=== PATIENT | female | born 1980 | race Caucasian/White ===

== ENCOUNTER 2021-05-13 15:25 | Emergency (ER) | payer OTHER ==
[~2021-05-13] VITALS: Ht 165.1 cm; Wt 111.1 kg
[2021-05-13] MEDS ORDERED: FORTAMET500 MG (15:47)
== END 2021-05-13 22:28 ==
LOC: ER 15:25
DX: G43.909 Migraine, unspecified, not intractable, without status migrainosus (principal)

== ENCOUNTER 2021-09-19 16:18 | Emergency (ER) | payer OTHER ==
[~2021-09-19] VITALS: Ht 165.1 cm; Wt 113.4 kg
[~2021-09-19 16:18] MED LIST: FORTAMET500 MG
[2021-09-19] MEDS ORDERED: ATORVASTATIN CA20 MG (16:46)
[2021-09-19] MEDS ORDERED: GABAPENTIN300 M2 (16:47)
[2021-09-19] MEDS ORDERED: FERROUS SULFAT325 MG (16:47)
[2021-09-19] MEDS ORDERED: ESCITALOPRAM OX10 MG (16:47)
[2021-09-19] MEDS ORDERED: DIAZEPAM5 MG (16:48)
== END 2021-09-19 18:01 | disposition home or self-care (01) ==
LOC: ER 16:18
DX: M13.80 Other specified arthritis, unspecified site (principal); M25.50 Pain in unspecified joint; E11.9 Type 2 diabetes mellitus without complications

== ENCOUNTER 2021-10-30 15:37 | Emergency (ER) | payer OTHER ==
[~2021-10-30] VITALS: Ht 165.1 cm; Wt 113.4 kg
[~2021-10-30 15:37] MED LIST changes: +ATORVASTATIN CA20 MG; +DIAZEPAM5 MG; +ESCITALOPRAM OX10 MG; +FERROUS SULFAT325 MG; +GABAPENTIN300 M2
== END 2021-10-30 22:16 | disposition home or self-care (01) ==
LOC: ER 15:37
DX: K57.92 Diverticulitis of intestine, part unspecified, without perforation or abscess without bleeding (principal); N20.1 Calculus of ureter; R10.32 Left lower quadrant pain; E11.9 Type 2 diabetes mellitus without complications

== ENCOUNTER 2022-02-06 12:12 | Emergency (ER) | payer OTHER ==
[~2022-02-06] VITALS: Ht 165.1 cm; Wt 111.1 kg
[2022-02-06] MEDS ORDERED: NORFLEX100MG PO (15:42)
[2022-02-06] MEDS ORDERED: MEDROLPACK PO (15:42)
[2022-02-06] MEDS ORDERED: KETO10TA2 PO (15:42)
== END 2022-02-06 16:05 | disposition home or self-care (01) ==
LOC: ER 12:12
DX: M54.59 Other low back pain (principal); E11.9 Type 2 diabetes mellitus without complications; Z79.84 Long term (current) use of oral hypoglycemic drugs; Z88.2 Allergy status to sulfonamides

== ENCOUNTER 2022-05-19 19:16 | Emergency (ER) | payer OTHER ==
[~2022-05-19] VITALS: Ht 165.1 cm; Wt 117.0 kg
[~2022-05-19 19:16] MED LIST changes: +KETO10TA2 PO; +MEDROLPACK PO; +NORFLEX100MG PO
[2022-05-19] MEDS ORDERED: FOLIC ACID1 MG PO (19:22)
[2022-05-19] MEDS ORDERED: CLEOCIN HCL300 MG PO (20:27)
[2022-05-19] MEDS ORDERED: MUPIROCIN1 G1 TOP (20:27)
[2022-05-19] MEDS ORDERED: DICLOFENAC SODI75 MG PO (20:27)
== END 2022-05-19 20:36 | disposition home or self-care (01) ==
LOC: ER 19:16
DX: L02.415 Cutaneous abscess of right lower limb (principal); E11.9 Type 2 diabetes mellitus without complications; Z79.84 Long term (current) use of oral hypoglycemic drugs; I10 Essential (primary) hypertension; Z88.2 Allergy status to sulfonamides

== ENCOUNTER 2022-12-18 02:25 | Emergency (ER) | payer OTHER ==
[~2022-12-18] VITALS: Ht 165.1 cm; Wt 114.3 kg
[~2022-12-18 02:25] MED LIST changes: +CLEOCIN HCL300 MG PO; +DICLOFENAC SODI75 MG PO; +FOLIC ACID1 MG PO; +MUPIROCIN1 G1 TOP
[2022-12-18] MEDS ORDERED: INTESTINEX680 M1 PO ×2 (02:38→10:33)
[2022-12-18] MEDS ORDERED: OZEMPIC0.25 MG/0. SQ (02:38)
[2022-12-18] MEDS ORDERED: LEVSIN/SL0.125 MG SL (10:33)
[2022-12-18] MEDS ORDERED: PEPCID AC20 MG PO (10:33)
[2022-12-18] MEDS ORDERED: METRONIDAZOLE500 MG PO (10:33)
== END 2022-12-18 10:47 | disposition home or self-care (01) ==
LOC: ER 02:25
DX: K52.9 Noninfective gastroenteritis and colitis, unspecified (principal)

== ENCOUNTER 2023-02-26 11:18 | Emergency (ER) | payer OTHER ==
[~2023-02-26] VITALS: Ht 165.1 cm; Wt 114.3 kg
[~2023-02-26 11:18] MED LIST changes: +INTESTINEX680 M1 PO; +LEVSIN/SL0.125 MG SL; +METRONIDAZOLE500 MG PO; +OZEMPIC0.25 MG/0. SQ; +PEPCID AC20 MG PO
== END 2023-02-26 15:21 | disposition home or self-care (01) ==
LOC: ER 11:18
DX: M25.512 Pain in left shoulder (principal); M25.561 Pain in right knee; W18.39XA Other fall on same level, initial encounter; Y93.89 Activity, other specified; Y92.017 Garden or yard in single-family (private) house as the place of occurrence of the external cause; Z88.2 Allergy status to sulfonamides

== ENCOUNTER 2023-12-27 09:17 | Emergency (ER) | payer OTHER ==
[~2023-12-27] VITALS: Ht 165.1 cm; Wt 108.0 kg
[2023-12-27] MEDS ORDERED: CIMBALTA (09:49)
[2023-12-27] MEDS ORDERED: 0.9 % SODIUM CHLORIDE 1,000 ML IV STA (11:33)
[2023-12-27] MEDS ORDERED: MEPERIDINE HCL/PF 50 MG/ML VIAL IV ONE (11:45)
[2023-12-27 12:46] LABS: HEMATOCRIT 34.9 % (36.0-45.00); HEMOGLOBIN 11.5 g/dL (12.0-15.00); MEAN CELL VOLUME 79.7 fL (80.00-100.00); MEAN CORPUSCULAR HEMOGLOBIN 26.3 pg (27.00-32.0); PLATELET COUNT 394 K/uL (150-450); RED BLOOD COUNT 4.38 M/uL (4.00-6.00); RED CELL DISTRIBUTION WIDTH 14.5 % (11.5-14.5)
[2023-12-27 13:16] LABS: INR < 0.93; PARTIAL THROMBOPLASTIN TIME 29.8 SECONDS (22.0-34.0); PROTHROMBIN TIME 9.8 SECONDS (9.0-11.5)
[2023-12-27 13:17] LABS: ALBUMIN 3.1 gm/dL (3.4-5.0); BILIRUBIN TOTAL 0.27 mg/dL (0.3-1.2); CALCIUM 9.8 mg/dL (8.5-10.1); CREATININE SERUM 0.65 mg/dL (0.55-1.02); GFR 99.02; GLOBULINA 4.5 G/DL (2.4-3.5); POTASSIUM 3.86 mEq/L (3.5-5.1); TOTAL PROTEIN 7.6 gm/dL (6.4-8.2)
[2023-12-27 13:36] LABS: PH,URINE 7.5 (5.0-8.0); URINE APPEARANCE Clear; URINE BILIRRUBIN Negative (NEGATIVE); URINE BLOOD Negative; URINE COLOR Yellow; URINE GLUCOSE Negative (NEGATIVE); URINE LEUKOCYTE Negative; URINE NITRATE Negative; URINE PROTEIN Negative (NEGATIVE); URINE UROBILINOGEN 0.2 E.U./dl
[2023-12-27 13:37] LABS: URINE EPITHELIAL CELLS 8.7 uL (0.0-38.8); URINE WBC 2.4 uL (0.0-23.2)
[2023-12-27 13:39] LABS: URINE RBC 1.7 uL (0.0-20.8)
[2023-12-27] MEDS ORDERED: MORPHINE SULFATE 4 MG/ML VIAL IV STA (16:04)
== END 2023-12-27 17:19 | disposition home or self-care (01) ==
LOC: ER 09:18
PROVIDERS: Emergency Medicine
DX: K57.32 Diverticulitis of large intestine without perforation or abscess without bleeding (principal); Z88.2 Allergy status to sulfonamides

== ENCOUNTER 2024-12-30 19:13 | Emergency (ER) | payer OTHER ==
[~2024-12-30] VITALS: Ht 165.1 cm; Wt 113.4 kg
[~2024-12-30 19:13] MED LIST changes: +CIMBALTA
[2024-12-30] MEDS ORDERED: FAMOtidine 10 MG/ML (4ML VIAL) IV PUSH ONE (20:00)
[2024-12-30] MEDS ORDERED: CHOLESTYRAMINE/ASPARTAME LIGHT 4 G/PKT PACKET PO ONE (20:00)
[2024-12-30] MEDS ORDERED: ONDANSETRON HCL 2 MG/ML VIAL IV ONE (20:00)
[2024-12-30] MEDS ORDERED: ONDANSETRON HCL 2 MG/ML VIAL ONE (20:06)
[2024-12-30] MEDS ORDERED: FAMOTIDINE/PF 20 MG/2 ML VIAL ONE (20:06)
[2024-12-30 20:42] LABS: HEMATOCRIT 35.1 % (36.0-45.00); MEAN CORPUSCULAR HEMOGLOBIN 22.2 pg (27.00-32.0); MEAN CORPUSCULAR HGB CONC 31.3 g/dl (32.0-36.0); PLATELET COUNT 443 K/uL (150-450); RED BLOOD COUNT 4.94 M/uL (4.00-6.00); RED CELL DISTRIBUTION WIDTH 19.1 % (11.5-14.5)
[2024-12-30 21:04] LABS: ALBUMIN 3.2 gm/dL (3.4-5.0); BILIRUBIN TOTAL 0.37 mg/dL (0.3-1.2); CREATININE SERUM 0.62 mg/dL (0.55-1.02); GFR 104.09; GLOBULINA 4.8 G/DL (2.4-3.5); POTASSIUM 3.75 mEq/L (3.5-5.1)
[2024-12-30] MEDS ORDERED: PROBIOTIC1 EAC2 PO (21:49)
[2024-12-30] MEDS ORDERED: PEPCID AC20 MG PO (21:49)
[2024-12-30] MEDS ORDERED: ZOFRAN8 MG PO (21:49)
== END 2024-12-30 21:53 | disposition home or self-care (01) ==
LOC: ER 19:16
PROVIDERS: General Practice
DX: R11.2 Nausea with vomiting, unspecified (principal); R19.7 Diarrhea, unspecified; Z88.2 Allergy status to sulfonamides; M79.7 Fibromyalgia; Z20.822 Contact with and (suspected) exposure to COVID-19; E11.9 Type 2 diabetes mellitus without complications; Z79.85 Long-term (current) use of injectable non-insulin antidiabetic drugs
CPT/HCPCS: 36415; 96372; 99282; J2405; J3490

== ENCOUNTER 2025-04-19 15:45 | Emergency (ER) | payer OTHER ==
[~2025-04-19] VITALS: Ht 165.1 cm; Wt 113.4 kg
[~2025-04-19 15:45] MED LIST changes: +PROBIOTIC1 EAC2 PO; +ZOFRAN8 MG PO
[2025-04-19] MEDS ORDERED: ZESTRIL10 M1 (16:09)
[2025-04-19] MEDS ORDERED: NEURONTIN300 MG PO (16:09)
[2025-04-19] MEDS ORDERED: CYMBALTA60 MG PO (16:10)
[2025-04-19] MEDS ORDERED: 0.9 % SODIUM CHLORIDE 500 ML IV ONE (17:15)
[2025-04-19] MEDS ORDERED: METOCLOPRAMIDE HCL 5 MG/ML VIAL IV ONE (17:15)
[2025-04-19] MEDS ORDERED: FAMOTIDINE/PF 20 MG/2 ML VIAL IV ONE (17:15)
[2025-04-19 17:55] LABS: BASO % 0.4 % (0.1-1.2); EOS # 0.42 (0.04-0.54); EOS % 4.3 % (0.7-7.0); LYMPH # 2.50 (1.18-3.74); LYMPH % 25.5 % (19.3-53.1); MEAN PLATELET VOLUME 9.10 fl (9.4-12.4); MONO # 0.60 (0.24-0.82); MONO % 6.1 % (4.7-12.5); NEUT # 6.21 (1.56-6.13); NEUT % 63.4 % (34.0-71.1); RED CELL DISTRIBUTION WIDTH 17.7 % (11.6-14.4)
[2025-04-19] MEDS ORDERED: KETOROLAC TROMETHAMINE 30 MG VIAL IV ONE (18:15)
[2025-04-19 18:18] LABS: ALT/SGPT 30.0 U/L (12-78); AST/SGOT 27.0 U/L (15-37); BILIRUBIN TOTAL 0.22 mg/dL (0.3-1.2); BUN CREA RATIO 12.0 (7.0-25.0); CREATININE SERUM 0.76 mg/dL (0.55-1.02); GFR 82.3; GLOBULINA 4.5 G/DL (2.4-3.5); GLUCOSE FASTING 109.0 mg/dL (65-100); OSMOLALITY SERUM 281.0 MOSM/KG (275-295)
[2025-04-19] MEDS ORDERED: CARAFATE1 GM PO (23:21)
[2025-04-19] MEDS ORDERED: PEPCID AC20 MG PO (23:21)
[2025-04-19] MEDS ORDERED: TRAMADOL HCL 50 MG TABLET PO ONE (23:30)
[2025-04-19] MEDS ORDERED: ORPHENADRINE CITRATE 30 MG/ML AMPUL IM ONE (23:30)
== END 2025-04-20 00:31 | disposition home or self-care (01) ==
LOC: ER 15:50
PROVIDERS: Preventive Medicine Public Health & General Preventive Medicine
DX: R10.12 Left upper quadrant pain (principal); E11.9 Type 2 diabetes mellitus without complications; Z79.84 Long term (current) use of oral hypoglycemic drugs; I10 Essential (primary) hypertension; M79.7 Fibromyalgia; Z88.2 Allergy status to sulfonamides